=== PATIENT | male | born 1970 | race Caucasian/White ===

== ENCOUNTER 2019-03-15 16:18 | Emergency (ER) | payer MEDICAID ==
[~2019-03-15] VITALS: Ht 175.3 cm; Wt 72.6 kg
[2019-03-15 16:20] VITALS: BP_SYST 131
[2019-03-15] MEDS ORDERED: NACL 0.9% 1,000 ML IV ONE (16:30)
[2019-03-15 17:01] LABS: BASOPHILS % (AUTO) 0.5 % (0.0-2.0); EOSINOPHILS % (AUTO) 0.1 % (0.0-4.0); HEMATOCRIT 49.3 % (36-54); HEMOGLOBIN 17.4 g/dL (14.0-18.0); LYMPHOCYTES # (AUTO) 1.7 K/uL (1.0-5.5); LYMPHOCYTES % (AUTO) 35.4 % (20.5-51.5); MEAN CORPUSCULAR HEMOGLOBIN 38 pg (27-31); MEAN CORPUSCULAR HGB CONC 35 % (32-36); MEAN CORPUSCULAR VOLUME 107 fL (79.0-98.0); MONOCYTES # (AUTO) 0.2 K/uL (0.0-1.0); MONOCYTES % (AUTO) 4.8 % (1.7-9.3); NEUTROPHILS # (AUTO) 2.9 K/uL (1.8-7.7); NEUTROPHILS % (AUTO) 59.2 % (40.0-70.0); PLATELET COUNT (AUTO) 107 K/uL (130-430); RED BLOOD CELL COUNT(AUTO) 4.63 MIL/uL (4.2-6.2); RED CELL DISTRIBUTION WIDTH 16.1 % (9.0-15.0); WHITE BLOOD COUNT (AUTO) 4.8 K/uL (4.8-10.8)
[2019-03-15 17:11] LABS: ANION GAP 21 (5-15); CALCIUM 9.1 mg/dL (8.4-11.0); CHLORIDE 101 mmol/L (98-107); CREATININE 0.92 mg/dL (0.55-1.30); GFR AFRICAN AMERICAN 114 mL/min (>90); GLUCOSE 112 mg/dL (70-99); POTASSIUM 3.5 mmol/L (3.5-5.1); SODIUM SERUM 144 mmol/L (136-145); UREA NITROGEN, BLOOD 12 mg/dL (8-21)
[2019-03-15] MEDS ORDERED: LORazepam 2 MG/ML VIAL IVP ONE (17:15)
[2019-03-15 17:18] LABS: ALANINE AMINOTRANSFERASE 94 U/L (12-78); ALBUMIN 4.6 g/dL (3.4-4.8); ALCOHOL, BLOOD 335 mg/dL (<10); ASPARTATE AMINOTRANSFERASE 105 U/L (10-37); TOTAL BILIRUBIN 3.7 mg/dL (0.0-1.0)
[2019-03-15 17:31] LABS: ACETAMINOPHEN < 1 ug/mL (1-30)
== END 2019-03-15 18:45 | disposition left against medical advice (07) ==
LOC: SED 16:18
DX: F10.129 Alcohol abuse with intoxication, unspecified (principal); Z53.20 Procedure and treatment not carried out because of patient's decision for unspecified reasons
CPT/HCPCS: 36415; 80053; 85025; 93005; 96374; 99284; G0480; G0481; G0482; J2060; J7030

== ENCOUNTER 2019-04-04 12:32 | Emergency (ER) | payer MEDICAID ==
[~2019-04-04] VITALS: Ht 175.3 cm; Wt 72.6 kg
[2019-04-04 12:49] VITALS: BP_SYST 136
[2019-04-04] MEDS ORDERED: chlordiazePOXIDE HCL 25 MG CAPSULE PO ONE (13:00)
== END 2019-04-04 13:15 | disposition home or self-care (01) ==
LOC: SED 12:32
DX: F10.129 Alcohol abuse with intoxication, unspecified (principal); Y90.9 Presence of alcohol in blood, level not specified
CPT/HCPCS: 99283